=== PATIENT | male | born 1950 | race Caucasian/White ===

== ENCOUNTER 2017-11-18 16:24 | Emergency (ER) | payer OTHER ==
[2017-11-18 17:15] LABS: PT RATIO 2.5
[2017-11-18 17:16] LABS: PARTIAL THROMBOPLASTIN TIME 35.7 Sec (25.0-35.0)
== END 2017-11-18 17:51 | disposition home or self-care (01) ==
LOC: E/R 16:24
DX: Z00.00 Encounter for general adult medical examination without abnormal findings (principal); Z76.0 Encounter for issue of repeat prescription; E11.9 Type 2 diabetes mellitus without complications; Z79.84 Long term (current) use of oral hypoglycemic drugs; Z79.01 Long term (current) use of anticoagulants
CPT/HCPCS: 85610; 85730; 99283

== ENCOUNTER 2018-04-27 18:53 | Emergency (ER) | payer OTHER | END 2018-04-27 20:38 | disposition home or self-care (01) | LOC: FTE 18:53 | DX: L02.414 Cutaneous abscess of left upper limb (principal); I10 Essential (primary) hypertension; E11.9 Type 2 diabetes mellitus without complications; Z79.01 Long term (current) use of anticoagulants; Z79.84 Long term (current) use of oral hypoglycemic drugs | CPT/HCPCS: 99283 ==